=== PATIENT | female | born 1975 | race Caucasian/White ===

== ENCOUNTER 2019-05-30 00:52 | Inpatient (IN) | payer BC ==
[~2019-05-30] VITALS: Ht 180.3 cm; Wt 56.7 kg
[2019-05-30] MEDS ORDERED: SODIUM CHLORIDE 0.9% 1,000 ML IV ONE (02:16)
[2019-05-30] MEDS ORDERED: ONDANSETRON HCL 4MG/2ML INJ IV STA (02:16)
[2019-05-30] MEDS ORDERED: MORPHINE SULFATE 4 MG/ML CPJ (NOT FOR IM USE) IV STA (02:16)
[2019-05-30 02:24] LABS: HEMATOCRIT. 42.3 % (36.0-48.0); HEMOGLOBIN. 14.3 g/dL (12.0-16.0); MEAN CORPUSCULAR HEMOGLOBIN 32.3 pg (28.0-32.0); MEAN CORPUSCULAR VOLUME 95.8 fL (81.0-99.0); MEAN PLATELET VOLUME 9.3 fl (7.4-10.4); PLATELET 282 x1000/uL (130-400); RED BLOOD CELL COUNT 4.42 mill/uL (4.2-5.4); RED CELL DISTRIBUTION WIDTH 12.4 % (11.6-14.6)
[2019-05-30 02:25] LABS: CHLORIDE 104 mEq/L (98-107)
[2019-05-30 04:13] LABS: PLATELET ESTIMATE NORMAL
[2019-05-30] MEDS ORDERED: MORPHINE SULFATE 4 MG/ML CPJ (NOT FOR IM USE) IV ONE (05:00)
[2019-05-30] MEDS ORDERED: CEFTRIAXONE 1 G PREMIX 50 ML IV ONE (05:00)
[2019-05-30] MEDS ORDERED: KETOROLAC 15MG/ML VIAL IV PRN (06:30)
[2019-05-30] MEDS ORDERED: ONDANSETRON HCL 4MG/2ML INJ IV PRN (06:30)
[2019-05-30] MEDS ORDERED: CLONIDINE 0.1MG TABLET PO PRN (06:30)
[2019-05-30] MEDS ORDERED: MAGNESIUM/ALUMINUM HYDROXIDE/SIMETHICONE 30ML UDC PO PRN (06:30)
[2019-05-30] MEDS: ACETAMINOPHEN 325MG TABLET PO PRN ×3 (09:49→22:24)
[2019-05-30 10:11] VITALS: BP 135/72
[2019-05-30] MEDS: MORPHINE SULFATE 4 MG/ML CPJ (NOT FOR IM USE) IV PRN ×2 (11:14→19:20)
[2019-05-30 11:56] VITALS: BP 110/71
[2019-05-30 12:05] LABS: UCG SCREEN NEGATIVE
[2019-05-30] MEDS: FAMOTIDINE 20MG/2ML VIAL IV SCH (12:56)
[2019-05-30 16:00] VITALS: BP 117/78
[2019-05-30] MEDS ORDERED: VALS1TAB72 MT (18:24)
[2019-05-30] MEDS ORDERED: BUPR-102 MT (18:24)
[2019-05-30] MEDS ORDERED: FLUO-124 MT (18:24)
[2019-05-30 20:00] VITALS: BP 113/80
[2019-05-31] VITALS: BP 110/72
[2019-05-31] MEDS: DEXT 5%/0.45% NACL 1000ML 1,000 ML IV SCH ×2 (00:49→10:47)
[2019-05-31] MEDS: MORPHINE SULFATE 4 MG/ML CPJ (NOT FOR IM USE) IV PRN ×2 (00:55→06:27)
[2019-05-31 04:00] VITALS: BP 102/72
[2019-05-31 07:12] LABS: BASOPHILS % 0.4 % (0.0-2.0); EOSINOPHILS % 0.8 % (0.0-5.0); HEMATOCRIT. 36.3 % (36.0-48.0); HEMOGLOBIN. 12.4 g/dL (12.0-16.0); LYMPHOCYTES % 18.4 % (20.0-50.0); MEAN CORPUSCULAR HEMOGLOBIN 32.6 pg (28.0-32.0); MEAN CORPUSCULAR VOLUME 95.7 fL (81.0-99.0); MEAN PLATELET VOLUME 9.2 fl (7.4-10.4); NEUTROPHILS % 68.4 % (40.0-76.0); PLATELET 209 x1000/uL (130-400); RED BLOOD CELL COUNT 3.79 mill/uL (4.2-5.4); RED CELL DISTRIBUTION WIDTH 12.8 % (11.6-14.6)
[2019-05-31 07:51] LABS: CHLORIDE 105 mEq/L (98-107)
[2019-05-31 08:50] VITALS: BP 102/71
[2019-05-31] MEDS: FAMOTIDINE 20MG/2ML VIAL IV SCH (10:47)
[2019-05-31] MEDS: ACETAMINOPHEN 325MG TABLET PO PRN (10:47)
[2019-05-31] MEDS ORDERED: POTASSIUM CHLORIDE 20MEQ TABLET SR PO SCH (11:15)
[2019-05-31 12:43] VITALS: BP 107/88
== END 2019-05-31 13:00 | disposition home or self-care (01) | DRG 445 ==
LOC: ER 00:52 → 8WST 05:14 → ENRESERV 07:04
PROVIDERS: ADMIT Hospitalist; ATTEND Hospitalist
DX: K80.10 Calculus of gallbladder with chronic cholecystitis without obstruction (principal); E87.2 Acidosis; Z68.1 Body mass index [BMI] 19.9 or less, adult; R10.13 Epigastric pain; I10 Essential (primary) hypertension; F32.9 Major depressive disorder, single episode, unspecified; D72.829 Elevated white blood cell count, unspecified
CPT/HCPCS: 36415; 74176; 76705; 81025; 83605; 96374; 99285; J0696; J1885; J2270; J2405; J3490; J7030